=== PATIENT | female | born 1985 | race Caucasian/White ===

== ENCOUNTER → 2017-01-26 | Outpatient (CLI) | payer BC ==
[~2017-01-26] VITALS: Ht 160 cm; Wt 50.3 kg
[~2017-01-26] MED LIST: AMIT25TA PO; ASAC800T2 PO; CALC1TAB21 PO; LIDOCAINE 2% INJ 100 MG/5 ML SDV (FOR ANES.) As Ordered ONE; NS 1,000 ML IV ONE; PROPOFOL 500 MG/50 ML VIAL As Ordered ONE
--- NOTE | 2017-01-26 13:29 | ROOR ---
Patient Name: Nakia Clark Procedure Date: 01/26/2017 1:06 PM Date of : 1985 Age: 31 Room: [facility] Gender: Female Note Status: Finalized Procedure: Colonoscopy to Cecum + ileoscopy + biopsies Indications: High risk colon cancer surveillance: Crohn's disease Providers: Barry López MD Referring MD: Shereen Rhodes NP Requesting Provider: Medicines: Monitored Anesthesia Care Complications: No immediate complications. Procedure: Pre-Anesthesia Assessment: - The heart rate, respiratory rate, oxygen saturations, blood pressure, adequacy of pulmonary ventilation, and response to care were monitored throughout the procedure. The Colonoscope was introduced through the anus and advanced to the terminal ileum, with identification of the appendiceal orifice and IC valve. The colonoscopy was performed without difficulty. The patient tolerated the procedure well. The quality of the bowel preparation was excellent. Findings: The perianal and digital rectal examinations were normal. Inflammation characterized by altered vascularity, congestion (edema), erosions, erythema, friability, granularity and aphthous ulcerations was found as patches surrounded by normal mucosa in the rectum, in the recto-sigmoid colon and in the descending colon. The distal descending colon, the splenic flexure, the transverse colon, the hepatic flexure, the ascending colon and the ileocecal valve were spared. This was moderate in severity. Biopsies were taken with a cold forceps for histology. The terminal ileum appeared normal. The exam was otherwise without abnormality on direct and retroflexion views. Impression: - Crohn's disease with colonic involvement. Inflammation was found in the rectum, in the recto-sigmoid colon and in the descending colon. This was moderate in severity. Biopsied. - The examined portion of the ileum was normal. - The examination was otherwise normal on direct and retroflexion views. - The exam was otherwise normal to the cecum. Recommendation: - Patient has a contact number available for emergencies. The signs and symptoms of potential delayed complications were discussed with the patient. Return to normal activities tomorrow. Written discharge instructions were provided to the patient. - Discharge patient to home. - Continue present medications. - Await pathology results. - Telephone GI clinic for pathology results in 1 week. - Return to referring physician. - The findings and recommendations were discussed with the patient's family. Barry López MD Barry López MD 01/26/2017 1:29:17 PM This report has been signed electronically. Number of Addenda: 0 Note Initiated On: 01/26/2017 1:06 PM Estimated Blood Loss: Estimated blood loss: none.
[2017-01-26 13:50] VITALS: BP 98/75
== END | disposition home or self-care (01) ==
LOC: M OPP 12:33
PROVIDERS: ATTEND Internal Medicine Gastroenterology
DX: Z12.11 Encounter for screening for malignant neoplasm of colon (principal); K50.80 Crohn's disease of both small and large intestine without complications; K52.9 Noninfective gastroenteritis and colitis, unspecified; R12 Heartburn; F41.9 Anxiety disorder, unspecified; Z79.899 Other long term (current) drug therapy

== ENCOUNTER → 2017-09-21 | Outpatient (CLI) | payer BC ==
[2017-09-21 09:57] LABS: BASO # 0.1 10^3/uL (0.0-0.2); EOS # 0.2 10^3/uL (0.0-0.50); EOS % 3.7 % (0.0-3.0); HEMATOCRIT 37.2 % (36.0-47.0); HEMOGLOBIN 12.3 g/dl (12.0-16.0); IMMATURE GRANULOCYTE % 0.3 % (0-0); LYMPH # 1.3 10^3/uL (1.5-4.5); LYMPH % 21.7 % (24.0-44.0); MEAN CORPUSCULAR HEMOGLOBIN 29.8 pg (27.0-33.0); MEAN CORPUSCULAR HGB CONC 33.1 g/dl (32.0-36.5); MEAN CORPUSCULAR VOLUME 90.1 fl (80.0-96.0); MONO # 0.4 10^3/uL (0.0-0.8); MONO % 6.2 % (0.0-5.0); NEUTROPHILS % 67.1 % (36.0-66.0); PLATELET COUNT, AUTOMATED 285 10^3/uL (150-450); RED BLOOD COUNT 4.13 10^6/uL (4.00-5.40); RED CELL DISTRIBUTION WIDTH 12.2 % (11.5-14.5)
[2017-09-21 10:20] LABS: ALBUMIN 3.9 GM/DL (3.2-5.2); ALBUMIN/GLOBULIN RATIO 1.26 (1.00-1.93); ALKALINE PHOSPHATASE 74 U/L (45-117); ALT/SGPT 13 U/L (12-78); AST/SGOT 9 U/L (7-37); BILIRUBIN,DIRECT < 0.1 MG/DL (0.0-0.2); BILIRUBIN,TOTAL 0.3 MG/DL (0.2-1.0); BLOOD UREA NITROGEN 10 MG/DL (7-18); C REACTIVE PROTEIN QUANTITATIV < 0.30 MG/DL (0.00-0.30); CREATININE FOR GFR 0.56 MG/DL (0.55-1.02); GLOMERULAR FILTRATION RATE > 60.0 (>60)
[2017-09-21 11:31] LABS: HEPATITIS B SURFACE ANTIBODY NEGATIVE (POSITIVE)
[2017-09-21 12:10] LABS: HEPATITIS C VIRUS ABY INDEX 0.1 INDEX (<0.8)
[2017-09-21 15:29] LABS: HEPATITIS B SURFACE ANTIGEN NEGATIVE (NEGATIVE)
[2017-09-22 08:10] LABS: HEPATITIS A IgG TOTAL Negative (Negative); HEPATITIS B CORE ANTIBODY IGG Negative (Negative)
[2017-09-23 08:16] LABS: QUANTIFERON GOLD TB Negative (Negative); TB Test (QFT) Antigen 0.04 IU/mL (.); TB Test (QFT) Antigen Minus Ni 0.01 IU/mL (.); TB Test (QFT) Mitogen 5.86 IU/mL (.); TB Test (QFT) Nil 0.03 IU/mL (.)
[2017-09-24 09:35] LABS: THIOPURINE METHYLTRANSFERASE 28.8 EU (> 21.0)
== END ==
LOC: M LAB 09:20
DX: K50.80 Crohn's disease of both small and large intestine without complications (principal)

== ENCOUNTER → 2017-10-22 | Outpatient (REF) | payer BC ==
[2017-10-22 14:00] LABS: CONTROL LINE UCG INT CTR LINE PRESENT; URINE PREG TEST NEGATIVE (NEGATIVE)
[2017-10-22 14:02] LABS: APPEARANCE, URINE CLEAR (CLEAR); BACTERIA, URINE AUTO NEGATIVE (NEGATIVE); BILIRUBIN, URINE AUTO NEGATIVE (NEGATIVE); BLOOD, URINE BLOOD 1+ (NEGATIVE); COLOR, URINE STRAW (YELLOW); GLUCOSE, URINE (UA) AUTO NEGATIVE (NEGATIVE); KETONE, URINE AUTO NEGATIVE (NEGATIVE); LEUKOCYTE ESTERASE, URINE AUTO NEGATIVE (NEGATIVE); NITRITE, URINE AUTO NEGATIVE (NEGATIVE); PROTEIN, URINE AUTO NEGATIVE (NEGATIVE); RBC, URINE AUTO 1 /HPF (0-3); SPECIFIC GRAVITY URINE AUTO 1.006 (1.002-1.035); SQUAMOUS EPITHELIAL CELL UR AU 0 /HPF (0-6); UROBILINOGEN, URINE AUTO 0.2 mg/dL (0.0-2.0); WBC, URINE AUTO 0 /HPF (0-3)
== END ==
LOC: M SMT 13:12
DX: R31.0 Gross hematuria (principal)

== ENCOUNTER → 2017-10-29 | Outpatient (CLI) | payer BC ==
[~2017-10-29] MED LIST changes: -AMIT25TA PO; -ASAC800T2 PO; -CALC1TAB21 PO; +ISOVUE-370 76% 100ML VIAL (Q9967) As Ordered; -LIDOCAINE 2% INJ 100 MG/5 ML SDV (FOR ANES.) As Ordered ONE; -NS 1,000 ML IV ONE; -PROPOFOL 500 MG/50 ML VIAL As Ordered ONE
== END ==
LOC: M RAD 16:38
DX: R31.0 Gross hematuria (principal)

== ENCOUNTER 2018-01-22 05:59 | Day surgery (SDC) | payer BC ==
[2018-01-22 06:29] LABS: HEMATOCRIT 38.4 % (36.0-47.0); HEMOGLOBIN 12.7 g/dl (12.0-15.5); MEAN CORPUSCULAR HGB CONC 33.1 g/dl (32.0-36.5); MEAN CORPUSCULAR VOLUME 90.6 fl (80.0-96.0); PLATELET COUNT, AUTOMATED 319 10^3/uL (150-450); RED BLOOD COUNT 4.24 10^6/uL (4.00-5.40); RED CELL DISTRIBUTION WIDTH 12.5 % (11.5-14.5)
[2018-01-22] MEDS: LR 1,000 ML IV (06:40)
[2018-01-22 06:43] LABS: CONTROL LINE HCG INT CTR LINE PRESENT; HCG, SERUM QUALITATIVE NEGATIVE (NEGATIVE)
[2018-01-22] MEDS ORDERED: MIDAZOLAM INJ 2 MG/2 ML VIAL (J2250) As Ordered (07:14)
[2018-01-22] MEDS ORDERED: ROCURONIUM BROMIDE 50 MG/5 ML VIAL As Ordered (07:14)
[2018-01-22] MEDS ORDERED: PROPOFOL 200 MG/20 ML VIAL As Ordered (07:14)
[2018-01-22] MEDS ORDERED: LIDOCAINE 2% INJ 100 MG/5 ML SDV (FOR ANES.) As Ordered (07:14)
[2018-01-22] MEDS ORDERED: fentaNYL 100 MCG/2 ML INJECTION (J3010) As Ordered ×2 (07:14→08:39)
[2018-01-22] MEDS ORDERED: KETOROLAC 60 MG/2 ML VIAL (J1885) As Ordered (07:15)
[2018-01-22] MEDS ORDERED: METOCLOPRAMIDE INJ 10MG/2ML VIAL (J2765) As Ordered (07:15)
[2018-01-22] MEDS ORDERED: dexameTHASONE 4 MG/ML 1ML VIAL (J1100) As Ordered (07:15)
[2018-01-22] MEDS ORDERED: ONDANSETRON 4MG/2ML VIAL (J2405) As Ordered (07:15)
[2018-01-22] MEDS: SILVER NITRATE APPLICATOR As Ordered (07:20)
[2018-01-22] MEDS ORDERED: NEOSTIGMINE 10 MG/10 ML VIAL (J2710) As Ordered (08:12)
[2018-01-22] MEDS ORDERED: GLYCOPYRROLATE INJ 0.2 MG/ML 2 ML VIAL As Ordered (08:12)
[2018-01-22] MEDS: BUPIVACAINE HCL 0.25% 30 ML VIAL As Ordered (08:31)
[2018-01-22] MEDS ORDERED: LR 1,000 ML IV ×2 (09:00→09:15)
[2018-01-22] MEDS ORDERED: fentaNYL 100 MCG/2 ML INJECTION (J3010) IV (09:15)
[2018-01-22] MEDS ORDERED: ONDANSETRON 4MG/2ML VIAL (J2405) IV (09:15)
[2018-01-22] MEDS: MEPERIDINE INJ 25 MG/ML VIAL (J2175) IV (09:22)
[2018-01-22] MEDS ORDERED: MEPERIDINE INJ 25 MG/ML VIAL (J2175) As Ordered (09:22)
[2018-01-22] MEDS ORDERED: NORCO, ANEXSIA 5/325MG TABLET (HYDROcodone/ACETAMINOPHEN) PO (09:45)
== END 2018-01-22 11:15 | disposition home or self-care (01) ==
LOC: M SDC 05:59
DX: R10.2 Pelvic and perineal pain (principal); K50.00 Crohn's disease of small intestine without complications; K52.9 Noninfective gastroenteritis and colitis, unspecified; M06.9 Rheumatoid arthritis, unspecified; F41.9 Anxiety disorder, unspecified; R51 Headache; Z79.899 Other long term (current) drug therapy; Z98.51 Tubal ligation status; Z87.891 Personal history of nicotine dependence
CPT/HCPCS: 58679

== ENCOUNTER 2018-03-05 07:09 | Day surgery (SDC) | payer BC ==
[2018-03-05] MEDS ORDERED: PROPOFOL 200 MG/20 ML VIAL As Ordered (07:12)
[2018-03-05] MEDS ORDERED: LIDOCAINE 2% INJ 100 MG/5 ML SDV (FOR ANES.) As Ordered ×2 (07:12→09:25)
[2018-03-05] MEDS: NS 1,000 ML IV (07:30)
== END 2018-03-05 10:10 | disposition home or self-care (01) ==
LOC: M OPP 07:09
DX: Z09 Encounter for follow-up examination after completed treatment for conditions other than malignant neoplasm (principal); K51.50 Left sided colitis without complications; K63.3 Ulcer of intestine; K50.90 Crohn's disease, unspecified, without complications; Z79.899 Other long term (current) drug therapy
CPT/HCPCS: 45380

== ENCOUNTER → 2018-04-15 | Outpatient (CLI) | payer BC ==
[2018-04-15 15:38] LABS: C REACTIVE PROTEIN QUANTITATIV < 0.30 MG/DL (0.00-0.30)
[2018-04-15 16:09] LABS: ERYTHROCYTE SEDIMENTATION RATE 12 mm/hr (0-20)
[2018-04-20 00:06] LABS: ANTI-SACCHAROMYCES CEREV. IgA <20.0 Units (0.0-24.9); ANTI-SACCHAROMYCES CEREV. IgG <20.0 Units (0.0-24.9)
== END ==
LOC: M LAB 14:40
DX: K52.3 Indeterminate colitis (principal); K51.911 Ulcerative colitis, unspecified with rectal bleeding
CPT/HCPCS: 86256

== ENCOUNTER → 2022-10-24 | Outpatient (CLI) | payer BC ==
[~2022-10-24] MED LIST changes: +AMIT25TA17 PO; +ASAC800T3 PO; +CALC1TAB21 PO; -ISOVUE-370 76% 100ML VIAL (Q9967) As Ordered; +OXYC1TAB23 PO; +VITA100018 PO
[2022-10-24 09:04] LABS: BASO # 0.1 10^3/uL (0.0-0.2); BASO % 0.8 % (0.0-1.0); EOS # 0.2 10^3/uL (0.0-0.5); EOS % 3.7 % (0.0-3.0); HEMATOCRIT 38.7 % (36.0-47.0); HEMOGLOBIN 12.7 g/dl (12.0-15.5); LYMPH # 1.6 10^3/uL (1.5-5.0); LYMPH % 25.7 % (24.0-44.0); MEAN CORPUSCULAR HEMOGLOBIN 30.2 pg (27.0-33.0); MEAN CORPUSCULAR HGB CONC 32.8 g/dl (32.0-36.5); MEAN CORPUSCULAR VOLUME 91.9 fl (80.0-96.0); MONO # 0.5 10^3/uL (0.0-0.8); NEUTROPHILS # 3.8 10^3/uL (1.5-8.5); NEUTROPHILS % 61.3 % (36.0-66.0); PLATELET COUNT, AUTOMATED 316 10^3/uL (150-450); RED BLOOD COUNT 4.21 10^6/uL (4.00-5.40); WHITE BLOOD COUNT 6.3 10^3/uL (4.0-10.0)
[2022-10-24 09:17] LABS: ERYTHROCYTE SEDIMENTATION RATE 13 mm/hr (0-20)
[2022-10-24 09:31] LABS: C REACTIVE PROTEIN QUANTITATIV < 0.40 MG/DL (<1.0)
[2022-10-24 09:32] LABS: IRON (FE) 88 UG/DL (50-170); PERCENT SATURATION 25.9 % (13.2-45.0); TOTAL IRON BINDING CAPACITY 340 UG/DL (250-425)
[2022-10-24 09:36] LABS: ALBUMIN 3.5 G/DL (3.2-5.2); ALKALINE PHOSPHATASE 96 U/L (46-116); ALT/SGPT 11 U/L (7.0-40); AST/SGOT 13 U/L (<34); BILIRUBIN,DIRECT 0.1 MG/DL (<0.4); BILIRUBIN,TOTAL 0.4 MG/DL (0.3-1.2); BLOOD UREA NITROGEN 8 MG/DL (9-23); CREATININE FOR GFR 0.57 MG/DL (0.55-1.30); GLOMERULAR FILTRATION RATE > 60.0 (>60); TOTAL PROTEIN 6.3 G/DL (5.7-8.2)
== END ==
LOC: M LAB 08:04
PROVIDERS: ATTEND Internal Medicine Gastroenterology
DX: K51.50 Left sided colitis without complications (principal)

== ENCOUNTER → 2022-10-24 | Outpatient (CLI) | payer BC | LOC: M LAB 08:01 | PROVIDERS: ATTEND Psychiatry & Neurology Neurology | DX: G45.9 Transient cerebral ischemic attack, unspecified (principal) ==

== ENCOUNTER 2023-01-09 11:42 | Day surgery (SDC) | payer BC ==
[~2023-01-09] VITALS: Ht 165.1 cm; Wt 47.6 kg
[~2023-01-09 11:42] MED LIST changes: +LIDOCAINE 2% 100MG/5ML SDV (FOR ANES.) As Ordered ONE; +NS 1,000 ML IV ONE; +SERT50TA29 PO; +VITMTA PO; +propofoL 200 MG/20 ML VIAL As Ordered ONE
[2023-01-09] MEDS ORDERED: ePHEDrine SULFATE 25 MG/5 ML(5MG/ML) SYRINGE As Ordered ONE (13:31)
[2023-01-09 14:03] VITALS: BP 93/53
== END 2023-01-09 14:05 | disposition home or self-care (01) ==
LOC: M OPP 11:42
PROVIDERS: ATTEND Internal Medicine Gastroenterology
DX: K64.4 Residual hemorrhoidal skin tags (principal); K64.8 Other hemorrhoids; K52.89 Other specified noninfective gastroenteritis and colitis; K51.00 Ulcerative (chronic) pancolitis without complications; Z79.899 Other long term (current) drug therapy